=== PATIENT | male | born 1955 | race Caucasian/White ===

== ENCOUNTER → 2017-05-06 | Outpatient (REF) | LOC: ZLAB.WCH 18:37 | DX: Z01.89 Encounter for other specified special examinations (principal) | CPT/HCPCS: G0103 ==

== ENCOUNTER → 2017-10-24 | Outpatient (REF) | LOC: ZLAB.WCH 19:26 | DX: Z01.89 Encounter for other specified special examinations (principal) ==

== ENCOUNTER → 2018-01-23 | Outpatient (REF) | LOC: ZLAB.WCH 16:21 | DX: Z01.89 Encounter for other specified special examinations (principal) ==

== ENCOUNTER → 2018-02-26 | Outpatient (REF) | LOC: ZLAB.WCH 17:16 | DX: Z01.89 Encounter for other specified special examinations (principal) | CPT/HCPCS: G0103 ==

== ENCOUNTER → 2018-02-27 | Outpatient (REF) | LOC: ZLAB.WCH 09:22 | DX: Z01.89 Encounter for other specified special examinations (principal) ==